=== PATIENT | female | born 1940 | race Caucasian/White ===

== ENCOUNTER 2017-04-27 15:28 | Emergency (ER) | payer OTHER ==
[~2017-04-27] VITALS: Ht 167.6 cm; Wt 74.8 kg
--- NOTE | 2017-04-27 15:28 | NUR ---
Patient to ER bed 3 to gown for evaluation. Side rails up. Report given to RAY Pendleton.
--- NOTE | 2017-04-27 15:28 | NUR ---
Patient had a fall down one step in the front of the hospital, stating that she was unsteady and used a cane which did not help her. Hematoma right forehead from fall. Denies KO. Denies other injuries. Patient to ER bed 3 to gown for evaluation. Side rails up. Report given to Fab BELL.
[2017-04-27 15:30] VITALS: BP_SYST 165
--- NOTE | 2017-04-27 15:30 | NUR ---
ER MEGAN Mccallum at bedside examining patient.
--- NOTE | 2017-04-27 15:33 | NUR ---
Pt fell in parking lot while talking on her phone. Pt stated that she felt unsteady mostly on her right knee that was previously replaced. Pt was using cane when the fall happened. There is a hematoma observed on her right forehead from the fall. Pt stated that she is on blood thinners for an up coming sx. 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 Will continue to monitor.
[2017-04-27] MEDS ORDERED: TIMO5DRO4 OP (15:51)
[2017-04-27] MEDS ORDERED: SIMV20TA2 PO (15:51)
[2017-04-27] MEDS ORDERED: VALS160T2 PO (15:51)
[2017-04-27] MEDS ORDERED: HYOS0.1275 SL (15:51)
[2017-04-27] MEDS ORDERED: CLOP75TA2 PO (15:51)
[2017-04-27] MEDS ORDERED: AMLO5TAB4 PO (15:51)
[2017-04-27] MEDS ORDERED: FAMO20TA8 PO (15:51)
--- NOTE | 2017-04-27 15:53 | NUR ---
Pt removed yellow earrings per case technician and placed bedside with pt belongings.
[2017-04-27 15:55] LABS: BASOPHILS # (AUTO) 0.1 K/uL (0.0-0.2); BASOPHILS % (AUTO) 1.1 % (0.0-2.0); EOSINOPHILS # (AUTO) 0.1 K/uL (0.0-0.4); LYMPHOCYTES # (AUTO) 2.4 K/uL (1.0-5.5); LYMPHOCYTES % (AUTO) 39.8 % (20.5-51.5); MEAN CORPUSCULAR HEMOGLOBIN 28 pg (27-31); MEAN CORPUSCULAR HGB CONC 33 % (32-36); MEAN CORPUSCULAR VOLUME 87 fL (79.0-98.0); MONOCYTES # (AUTO) 0.3 K/uL (0.0-1.0); MONOCYTES % (AUTO) 5.9 % (1.7-9.3); NEUTROPHILS % (AUTO) 52.2 % (40.0-70.0); PLATELET COUNT (AUTO) 305 K/uL (130-430); RED BLOOD CELL COUNT(AUTO) 4.95 MIL/uL (4.2-6.2); WHITE BLOOD COUNT (AUTO) 5.9 K/uL (4.8-10.8)
--- NOTE | 2017-04-27 15:55 | NUR ---
Patient transported to radiology in stable condition via stretcher, accompanied by radiology staff.
[2017-04-27] MEDS ORDERED: ACETAMINOPHEN 500 MG TABLET PO ONE (16:00)
--- NOTE | 2017-04-27 16:15 | NUR ---
Pt returned to unit by Radiology staff. Vital signs stable, will continue to monitor.
[2017-04-27 16:17] LABS: ANION GAP 9 (5-15); CALCIUM 9.6 mg/dL (8.4-11.0); CHLORIDE 106 mmol/L (98-107); CREATININE 0.78 mg/dL (0.55-1.30); GLUCOSE 119 mg/dL (70-99); POTASSIUM 4.2 mmol/L (3.5-5.1); SODIUM SERUM 140 mmol/L (136-145); UREA NITROGEN, BLOOD 16 mg/dL (8-21)
[2017-04-27 16:18] LABS: PROTHROMBIN TIME 10.3 SECS (9.5-12.5)
[2017-04-27 16:22] LABS: ALANINE AMINOTRANSFERASE 29 U/L (12-78); ASPARTATE AMINOTRANSFERASE 17 U/L (10-37); TOTAL BILIRUBIN 0.5 mg/dL (0.0-1.0)
--- NOTE | 2017-04-27 16:35 | NUR ---
Pt brought bedside from [facility]TELE by Maranda BELL in wheelchair. Will phone Maranda at [phone]. [phone] when is ready to return to room.
--- NOTE | 2017-04-27 16:40 | NUR ---
Straight in / out cath for urine specimen obtained and dropped off at lab, pending results.
[2017-04-27 17:12] LABS: BILIRUBIN,URINE NEGATIVE (NEGATIVE); BLOOD, URINE NEGATIVE (NEGATIVE); CLARITY/URINE CLEAR (CLEAR); COLOR,URINE YELLOW (YELLOW); GLUCOSE,URINE NEGATIVE (NEGATIVE); KETONES,URINE TRACE (NEGATIVE); LEUKOCYTE ESTERASE ,URINE NEGATIVE (NEGATIVE); NITRITE, URINE NEGATIVE (NEGATIVE); PH,URINE 6.5 (5.0-8.0); PROTEIN URINE NEGATIVE (NEGATIVE); UROBILINOGEN,URINE 0.2 (0.2-1.0)
--- NOTE | 2017-04-27 17:36 | NUR ---
Pt resting comfortably in bed, at bedside. will continue to monitor.
[2017-04-27 18:14] VITALS: BP_SYST 132
--- NOTE | 2017-04-27 18:14 | NUR ---
Patient given written and verbal discharge instructions and verbalizes understanding. ER MD discussed with patient the results and treatment provided. Patient in stable condition. ID arm band removed. No Rx given. Patient educated on pain management and to follow up with PMD. Pain Scale 2. Opportunity for questions provided and answered.
== END 2017-04-27 18:14 | disposition home or self-care (01) ==
LOC: SED 15:28
DX: S00.83XA Contusion of other part of head, initial encounter (principal); S80.02XA Contusion of left knee, initial encounter; S80.01XA Contusion of right knee, initial encounter; K21.9 Gastro-esophageal reflux disease without esophagitis; I10 Essential (primary) hypertension; Z86.73 Personal history of transient ischemic attack (TIA), and cerebral infarction without residual deficits; Z90.710 Acquired absence of both cervix and uterus; Z88.6 Allergy status to analgesic agent; Z79.899 Other long term (current) drug therapy; W19.XXXA Unspecified fall, initial encounter; Y93.01 Activity, walking, marching and hiking; Y92.239 Unspecified place in hospital as the place of occurrence of the external cause; Y99.8 Other external cause status
CPT/HCPCS: 36415; 70450-TC; 71010; 80053; 81003; 84484; 85025; 85610-TC; 85730-TC; 93005; 99285